=== PATIENT | male | born 1970 | race Caucasian/White ===

== ENCOUNTER 2016-11-22 15:26 | Emergency (ER) | payer OTHER ==
--- NOTE | 2016-11-22 16:58 | ED ---
General Adult HPI - General Chief complaint: Abdominal Pain Stated complaint: Abd Pain Time Seen by Provider: 11/22/16 16:39 Source: patient, RN notes reviewed Mode of arrival: ambulatory Limitations: no limitations - History of Present Illness Initial comments: Patient is a 46-year-old male presents to the emergency room for evaluation of bilateral anterior rib pain. Patient states that he had vomiting and diarrhea all day yesterday. Patient states he laid in bed all day yesterday. Patient states he woke up this morning and is no longer nauseous. Patient states that he has developed a dry cough. Patient's cough has bilateral anterior rib pain. Patient denies any recent falls or trauma to his ribs. Patient denies any pain with breathing. Patient denies chest pain. Patient denies shortness of breath. Patient just states he has pain every time he coughs. Patient states he is here just to have a chest x-ray to make sure he does not have pneumonia. Patient does state he smokes one pack per day. Patient denies any fevers or chills. Patient denies abdominal pain or current nausea. Patient denies headache or dizziness. - Related Data Home Medications Medication Instructions Recorded Confirmed Dextroamphetamine/Amphetamine 20 mg PO BID 11/22/16 11/22/16 [Adderall] Previous Rx's Medication Instructions Recorded Benzonatate [Tessalon Perles] 100 mg PO TID PRN #12 cap 11/22/16 Ibuprofen [Motrin] 800 mg PO Q6HR PRN #20 tab 11/22/16 Allergies Allergy/AdvReac Type Severity Reaction Status Date / Time No Known Allergies Allergy Verified 11/22/16 16:57 Review of Systems ROS Statement: Those systems with pertinent positive or pertinent negative responses have been documented in the HPI. ROS Other: All systems not noted in ROS Statement are negative. Past Medical History Past Medical History: No Reported History History of Any Multi-Drug Resistant Organisms: None Reported Past Surgical History: No Surgical Hx Reported Past Psychological History: ADD/ADHD Smoking Status: Current every day smoker Past Alcohol Use History: None Reported Past Drug Use History: None Reported General Exam - General Exam Comments Initial Comments: Sitting in exam room in no acute distress. Limitations: no limitations General appearance: alert, in no apparent distress Head exam: Present: atraumatic, normocephalic, normal inspection Eye exam: Present: normal appearance ENT exam: Present: normal exam Neck exam: Present: normal inspection Respiratory exam: Present: normal lung sounds bilaterally. Absent: respiratory distress Cardiovascular Exam: Present: regular rate, normal rhythm, normal heart sounds GI/Abdominal exam: Present: soft, normal bowel sounds. Absent: distended, tenderness, guarding, rebound, rigid Extremities exam: Present: normal inspection Back exam: Present: normal inspection Neurological exam: Present: alert, oriented X3, CN II-XII intact, normal gait Psychiatric exam: Present: normal affect, normal mood Skin exam: Present: warm, dry, intact, normal color. Absent: rash Course Vital Signs 11/22/16 11/22/16 11/22/16 16:15 17:12 18:20 Temperature 97.8 F 98.0 F Pulse Rate 84 84 80 Respiratory 20 15 18 Rate Blood Pressure 143/85 146/81 132/75 O2 Sat by Pulse 98 94 L 98 Oximetry Medical Decision Making - Medical Decision Making Patient is a 46-year-old male presents to the emergency room for evaluation of bilateral anterior rib pain. Chest x-ray shows no acute findings. Patient declined any further workup. Patient can take Tylenol or ibuprofen for pain. Patient states he understands everything that was discussed with him. Return parameters discussed. Case discussed with Dr. [place]. - Radiology Data Radiology results: report reviewed, image reviewed Disposition Clinical Impression: Rib pain, Cough Disposition: HOME SELF-CARE Condition: Good Instructions: Costochondritis (ED) Additional Instructions: Take medications as needed. Please follow up with primary care provider in 1-2 days. If any new symptom arises or symptoms worsen, return to ER as soon as possible. Prescriptions: Ibuprofen [Motrin] 800 mg PO Q6HR PRN #20 tab PRN Reason: Pain Benzonatate [Tessalon Perles] 100 mg PO TID PRN #12 cap PRN Reason: Cough Referrals: Bennett Ugarte MD [Primary Care Provider] - 1-2 days Time of Disposition: 18:02
--- NOTE | 2016-11-22 17:28 | XR ---
EXAMINATION TYPE: XR chest 2V DATE OF EXAM: 11/22/2016 5:18 PM COMPARISON: NONE HISTORY: Nausea and vomiting TECHNIQUE: Frontal and lateral views of the chest are obtained. FINDINGS: Heart and mediastinum are normal. Lungs are clear. Diaphragm is normal. Bony thorax is int act. IMPRESSION: Normal chest
[2016-11-22 18:20] VITALS: BP 132/75; PULSE 80; RESP 18; TEMP 98
== END 2016-11-22 18:20 | disposition home or self-care (01) ==
LOC: EC 15:26
DX: R07.81 Pleurodynia (principal); R05 Cough; F17.200 Nicotine dependence, unspecified, uncomplicated
CPT/HCPCS: 71020; 99284

== ENCOUNTER 2023-05-17 11:45 | Day surgery (SDC) | payer OTHER ==
[2023-05-16 11:13] VITALS: BMI 38.7
--- NOTE | 2023-05-17 09:00 | P.GSHP ---
History of Present Illness H&P Date: 05/17/23 Chief Complaint: Left renal colic The patient is a 53-year-old white male with no prior history of urolithiasis or UTIs. He experienced gross hematuria 1 month ago. Beginning May 08, he experienced left flank pain associated with fever, chills, nausea, and vomiting. Upon presenting to the ER, he was found to be febrile and have leukocytosis. CT scan showed evidence of left hydronephrosis secondary to two 7 mm left mid- distal ureteral calculi. Urinalysis was suggestive of a UTI, so he underwent placement of a left ureteral stent. Ultimately, the urine culture came back negative. He felt better once the stent was placed. He now comes for removal of the stent and ureteroscopic removal of the calculi. - Constitutional Constitutional: Reports chills, Reports fever - Gastrointestinal Gastrointestinal: Reports nausea, Reports vomiting - Genitourinary (Male) Genitourinary: Reports flank pain, Reports hematuria, Reports kidney stones, Denies dysuria Past Medical History Past Medical History: Diabetes Mellitus, Hyperlipidemia, Hypertension Additional Past Medical History / Comment(s): Current kidney stones. History of Any Multi-Drug Resistant Organisms: None Reported Past Surgical History: No Surgical Hx Reported Additional Past Surgical History / Comment(s): Ureteral stent. Past Anesthesia/Blood Transfusion Reactions: No Reported Reaction Past Psychological History: ADD/ADHD Smoking Status: Current every day smoker Past Alcohol Use History: Occasional Additional Past Alcohol Use History / Comment(s): Smokes 1/2-1 ppd, has been smoking for 40 yrs. Past Drug Use History: None Reported - Past Family History Mother Family Medical History: Cancer Additional Family Medical History / Comment(s): Ovarian cancer. Medications and Allergies Home Medications Medication Instructions Recorded Confirmed Type Dextroamphetamine/Amphetamine 20 mg PO BID 11/22/16 05/16/23 History [Adderall] Tamsulosin HCl [Flomax] 0.4 mg PO DAILY 05/14/23 05/16/23 History buPROPion HCL [buPROPion HCL XL] 300 mg PO QAM 05/14/23 05/16/23 History cefUROXime axetiL [Ceftin] 500 mg PO BID 05/14/23 05/16/23 History lisinopriL 40 mg PO QAM 05/14/23 05/16/23 History Atorvastatin (Unknown Dose) 1 tab PO DAILY 05/16/23 05/16/23 History Ibuprofen [Motrin] 800 mg PO TID PRN 05/16/23 05/16/23 History metFORMIN HCL [Glucophage] 500 mg PO BID 05/16/23 05/16/23 History Allergies Allergy/AdvReac Type Severity Reaction Status Date / Time No Known Allergies Allergy Verified 05/16/23 10:57 Surgical - Exam - General well developed, well nourished, no distress - Neck no masses, trachea midline - Respiratory normal respiratory effort - Abdomen Abdomen: soft, non tender, no guarding, no rigid, no rebound - Genitourinary normal penis with no external lesions, testicles non-tender - Neurologic no disoriented, no combative Results - Imaging CT scan - abdomen: report reviewed, image reviewed Assessment and Plan (1) Calculus of ureter Status: Acute Code(s): N20.1 - CALCULUS OF URETER SNOMED Code(s): 46446275 Plan: Cystoscopy, left ureteral stent removal, left ureteroscopy with Holmium laser lithotripsy and possible stone basketing. Risks have been reviewed with the patient, which include anesthesia, bleeding, infection, ureteral injury, and inability to remove the calculi.
[~2023-05-17 11:45] MED LIST: ceFAZolin 3 GM in SODIUM CHLORIDE 0.9% 100 ML IVPB PRN
--- NOTE | 2023-05-17 12:02 | XR ---
EXAMINATION TYPE: XR KUB DATE OF EXAM: 05/17/2023 COMPARISON: NONE HISTORY: Left kidney stone TECHNIQUE: Supine KUB image of the abdomen was obtained with 2 radiographs. FINDINGS/IMPRESSION: Small bowel demonstrates no evidence for dilatation or air fluid levels. Gas and fecal material is seen in non-distended colon. No convincing evidence for pneumoperitoneum. Left ureteral stent identified. There is a 1.1 cm calculus in the region of the left ureterovesical j unction. Additional suggested 1.4 cm calculus mid left ureter at the L4-L5 level. No definitive renal calculi. The osseous structures are intact. Degenerative changes of the lumbar spine.
[2023-05-17] MEDS ORDERED: ONDANSETRON 4 MG/2 ML VIAL ONE (12:20)
[2023-05-17] MEDS ORDERED: LIDOCAINE 1% (10MG/ML) FOR IV START INTRADERMA ONE (12:29)
[2023-05-17] MEDS ORDERED: LACTATED RINGERS 1,000 ML IV ONE ×2 (12:30→15:36)
[2023-05-17 12:37] LABS: Glucose,Whole Blood 202 mg/dL (70-110)
[2023-05-17] MEDS ORDERED: ONDANSETRON 4 MG/2 ML VIAL IVP ONE (12:38)
[2023-05-17] MEDS ORDERED: KETOROLAC 15 MG/ML 1 ML VIAL ONE (13:35)
[2023-05-17] MEDS ORDERED: ROCURONIUM 10 MG/ML (5 ML VIAL) IV ONE (13:35)
[2023-05-17] MEDS ORDERED: PROPOFOL 10 MG/ML 20 ML VIAL IV ONE (13:35)
[2023-05-17] MEDS ORDERED: PHENYLEPHRINE-0.9% NACL SYG 1,000 MCG/10 ML SYRINGE ONE (13:35)
[2023-05-17] MEDS ORDERED: MIDAZOLAM 2 MG/2 ML VIAL ONE (13:35)
[2023-05-17] MEDS ORDERED: GLYCOPYRROLATE 0.2 MG/ML 2 ML VIAL ONE (13:35)
[2023-05-17] MEDS ORDERED: HYDROmorphone (PF) 1 MG/ML ONE (13:35)
[2023-05-17] MEDS ORDERED: LIDOCAINE 2% INJ 20 MG/ML (2 ML VIAL) ONE (13:35)
[2023-05-17] MEDS ORDERED: SUCCINYLCHOLINE CHLORIDE 200 MG/10 ML VIAL IV ONE (13:35)
[2023-05-17] MEDS ORDERED: fentaNYL (PF) 50 MCG/ML 2 ML AMP ONE (13:35)
[2023-05-17] MEDS ORDERED: NEOSTIGMINE 1 MG/ML 10 ML VIAL ONE (13:35)
--- NOTE | 2023-05-17 16:12 | FL ---
Intraoperative/procedural fluoroscopic services were provided for left renal calculus. Total fluorosc opy time is 13.1 seconds with a total of 1 submitted image to PACS. Total DAP 2.7646 Gycm2. Please s ee the operative note for further details.
[2023-05-17 16:13] VITALS: TEMP 96.9
--- NOTE | 2023-05-17 16:18 | P.OP ---
Date of Procedure: 05/17/23 Preoperative Diagnosis: Left ureteral calculi Postoperative Diagnosis: Same Procedure(s) Performed: Cystoscopy, left ureteral stent removal, left ureteroscopy with Holmium laser lithotripsy and stone basketing Anesthesia: SILVIO Surgeon: Kermit Mcclure Estimated Blood Loss (ml): 10 IV fluids (ml): 600 Pathology: other (Left ureteral calculus fragments, sent for chemical analysis) Condition: stable Disposition: PACU Indications for Procedure: The patient is a 53-year-old white male with no prior history of urolithiasis or UTIs. He experienced gross hematuria 1 month ago. Beginning May 08, he experienced left flank pain associated with fever, chills, nausea, and vomiting. Upon presenting to the ER, he was found to be febrile and have leukocytosis. CT scan showed evidence of left hydronephrosis secondary to two 7 mm left mid- distal ureteral calculi. Urinalysis was suggestive of a UTI, so he underwent placement of a left ureteral stent. Ultimately, the urine culture came back negative. He felt better once the stent was placed. He now comes for removal of the stent and ureteroscopic removal of the calculi. Operative Findings: Large left ureteral calculi, one in the distal ureter and one in the mid ureter, both fragmented and removed. Description of Procedure: The patient was taken to the operating room and placed in the dorsolithotomy position, with legs supported in Rafael stirrups. The external genitalia was prepped and draped sterilely. The 30 lens was used to introduce the 21-Setswana Espinal cystoscopic sheath through the urethra and into the bladder under direct vi kellie. The prostatic urethra showed evidence of mild lateral lobe enlargement. The bladder was examined in its entirety. No tumors or foreign bodies were seen. Grasping forceps were used to grasp the distal end of the left ureteral stent, which was withdrawn along with the cystoscope. The Espinal semirigid ureteroscope was advanced into the bladder, and the left ureteral orifice was cannulated. the ureteroscope was slowly advanced up to the distal ureteral calculus. The 272 holmium laser probe was passed through the ureteroscope, and lithotripsy was performed. The calculus was very dense. The core of the calculus was treated via dusting. Ultimately, the shell of the calculus was fragmented, and a 0 tip nitinol basket was used to remove all of the calculus fragments from the ureter. Once the calculus was sufficiently treated, the ureteroscope was advanced higher, up to the mid ureteral calculus. Once again, lithotripsy was performed by dusting the core of the calculus, then fragmenting the shell of the calculus until there were no large residual fragments. Fluoroscopy was performed, and no calculi were seen. It was difficult enough to advance the ureteroscope to this level that it was not feasible to go in and out of the ureter to remove fragments via stone basketing. Therefore, a 0.038 inch Glidewire was passed through the ureteroscope, which was then removed. An 11/13-Setswana ureteral access catheter was passed over the wire, almost up to the mid ureteral calculus. The [employer] flexible ureteroscope was then passed through the ureteral access catheter sheath, up to the calculus fragments. The largest of the fragments was grasped using a nitinol basket, and this fragment was only 1 mm in size. Repeat ureteroscopy showed that the debris within the ureter was essentially dust, and pullout ureteroscopy showed no calculus fragments too large to pass. It is also noteworthy that there was no evidence of ureteral trauma. After removing the ureteroscope, the cystoscope was replaced into the bladder. The bladder was emptied, and stone fragments removed from the bladder were saved and sent for chemical analysis. The patient tolerated the procedure well and was taken to the recovery room in stable condition. [facility] [place] Report: Procedure Acuity: Semi-Urgent Stone Size and Location: Left distal ureter and left mid ureter, 11-14 mm Ureteral Dilation: No Ureteral Access Sheath Used: Yes Stone Sent for Analysis: Yes All Stones/Fragments Were Removed with a Basket: No Complications: No Preoperative Antibiotics Given: Yes Stent Placed: No Discharge Medications: None
[2023-05-17 16:30] LABS: Glucose,Whole Blood 185 mg/dL (70-110)
[2023-05-17 16:57] VITALS: RESP 16
[2023-05-17 17:35] VITALS: BP 121/61; PULSE 74
== END 2023-05-17 18:26 | disposition home or self-care (01) ==
LOC: OR 11:45
PROVIDERS: ATTEND Urology
DX: N20.1 Calculus of ureter (principal); E78.5 Hyperlipidemia, unspecified; E11.9 Type 2 diabetes mellitus without complications; I10 Essential (primary) hypertension; F17.210 Nicotine dependence, cigarettes, uncomplicated; Z80.41 Family history of malignant neoplasm of ovary; Z79.84 Long term (current) use of oral hypoglycemic drugs
CPT/HCPCS: 52356; 82365; 74018; C1769; J2250; J0330; J2710; J0690; J2405; J3010; J1170; J1885; J2704; J2001; J2371

== ENCOUNTER 2023-05-31 06:41 | Day surgery (SDC) | payer OTHER ==
[~2023-05-31 06:41] MED LIST changes: +LACTATED RINGERS 1,000 ML IV SCH; +LIDOCAINE 1% (10MG/ML) FOR IV START INTRADERMA PRN; -ceFAZolin 3 GM in SODIUM CHLORIDE 0.9% 100 ML IVPB PRN
[2023-05-31 07:10] VITALS: RESP 16; TEMP 96.9
[2023-05-31 07:23] LABS: Glucose,Whole Blood 181 mg/dL (70-110)
[2023-05-31] MEDS ORDERED: PROPOFOL 10 MG/ML 20 ML VIAL IV ONE (07:37)
--- NOTE | 2023-05-31 07:42 | P.GSHP ---
History of Present Illness H&P Date: 05/31/23 Chief Complaint: Reading colonoscopy Is a 53-year-old male presents today for screening colonoscopy. Patient denies a significant GI complaints. Past Medical History Past Medical History: No Reported History, Diabetes Mellitus, Hyperlipidemia, Hypertension Additional Past Medical History / Comment(s): 05/17/23 UA STENT. kidney stones History of Any Multi-Drug Resistant Organisms: None Reported Past Surgical History: No Surgical Hx Reported Additional Past Surgical History / Comment(s): ureteral stent Past Anesthesia/Blood Transfusion Reactions: No Reported Reaction Past Psychological History: ADD/ADHD Smoking Status: Current every day smoker Past Alcohol Use History: None Reported Additional Past Alcohol Use History / Comment(s): 1/2-1 pk/day/40 yrs Past Drug Use History: None Reported - Past Family History Mother Family Medical History: Cancer Additional Family Medical History / Comment(s): Ovarian cancer. Medications and Allergies Home Medications Medication Instructions Recorded Confirmed Type Dextroamphetamine/Amphetamine 20 mg PO BID 11/22/16 05/29/23 History [Adderall] buPROPion HCL [buPROPion HCL XL] 300 mg PO QAM 05/14/23 05/29/23 History lisinopriL 40 mg PO QAM 05/14/23 05/29/23 History Atorvastatin (Unknown Dose) 1 tab PO DAILY 05/16/23 05/29/23 History Ibuprofen [Motrin] 800 mg PO TID PRN 05/16/23 05/29/23 History metFORMIN HCL [Glucophage] 500 mg PO BID 05/16/23 05/29/23 History Tirzepatide [Mounjaro] 1 injection SQ SA 05/29/23 05/29/23 History Allergies Allergy/AdvReac Type Severity Reaction Status Date / Time No Known Allergies Allergy Verified 05/31/23 07:03 Surgical - Exam Vital Signs Temp Pulse Resp BP Pulse Ox 96.9 F L 92 16 120/60 95 05/31/23 07:07 05/31/23 07:07 05/31/23 07:07 05/31/23 07:07 05/31/23 07:07 - General well developed, well nourished, no distress - Eyes PERRL - ENT normal pinna - Neck no masses - Respiratory normal expansion - Cardiovascular Rhythm: regular - Abdomen Abdomen: soft, non tender Results - Labs Abnormal Lab Results - Last 24 Hours (Table) 05/31/23 Range/Units 07:21 POC Glucose (mg/dL) 181 H (70-110) mg/dL Assessment and Plan Assessment: We'll perform screening colonoscopy.
--- NOTE | 2023-05-31 07:57 | P.OP ---
Date of Procedure: 05/31/23 Preoperative Diagnosis: Screening colonoscopy Postoperative Diagnosis: Colon polyps Procedure(s) Performed: Colonoscopy Anesthesia: MAC Surgeon: Janak Castle Pathology: other (Old polyp) Condition: stable Disposition: PACU Description of Procedure: The patient's placed on the endoscopy table in the lateral position. He received IV sedation. Digital rectal exam was performed. This revealed no abnormalities. Flexible colonoscope was then placed patient anus and passed throughout the entire colon. The ileocecal valve was visualized. The cecum, appeared normal. In the right colon there is a sessile polyp seen was removed the cold forcep. Scope was then drawn the remaining right colon appeared normal. The trachea in the transverse colon another polyp seen was removed with the snare. The remainder the transverse colon descending colon and sigmoid colon appeared normal. Scope was brought back the rectum was normal. Scope withdrawn for patient.
[2023-05-31 08:18] VITALS: BP 115/69; PULSE 85
== END 2023-05-31 08:33 | disposition home or self-care (01) ==
LOC: ORWHC2ENDO 06:41
PROVIDERS: ATTEND Surgery
DX: Z12.11 Encounter for screening for malignant neoplasm of colon (principal); D12.3 Benign neoplasm of transverse colon; D12.2 Benign neoplasm of ascending colon; F17.200 Nicotine dependence, unspecified, uncomplicated; Z87.442 Personal history of urinary calculi; Z98.890 Other specified postprocedural states; Z79.84 Long term (current) use of oral hypoglycemic drugs; Z79.899 Other long term (current) drug therapy
CPT/HCPCS: 88305; 45380; 45385; J2704

== ENCOUNTER → 2024-02-20 | Outpatient (CLI) | payer OTHER ==
--- NOTE | 2024-02-20 20:43 | MR ---
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 TECHNIQUE: Multi planar, multi sequence imaging was performed through the brain including: T1, T2, In version recovery, Diffusion weighted imaging, and gradient echo imaging. No gadolinium was given. FINDINGS: The curiel-white junctions, ventricular system, and cisterns appear unremarkable. Scattered foci of hi gh T2 signal intensity are seen within the periventricular white matter. Midline structures show no a bnormality. Diffusion-weighted imaging shows no evidence of restricted diffusion. The susceptibility weighted images do not reveal any evidence for micro-hemorrhage. Hypointense signal is identified on T2 and FLAIR sequences within the globus pallidus bilaterally. The bone marrow signal is within normal limits. Paranasal sinuses and mastoid air cells: No significant paranasal sinus disease. Visualized orbits: Orbital contents are intact. IMPRESSION: 1. No evidence of acute process. 2. T2 hypointense appearance of the globus pallidus bilaterally, although nonspecific has been associ ated with underlying Parkinson's syndromes. 3. Nonspecific white matter changes, likely secondary to small vessel ischemic disease.
== END | disposition home or self-care (01) ==
LOC: RADMRIMAIN 20:00
PROVIDERS: ATTEND Psychiatry & Neurology Neurology
DX: G20.A1 Parkinson's disease without dyskinesia, without mention of fluctuations (principal); F45.8 Other somatoform disorders; I67.82 Cerebral ischemia
CPT/HCPCS: 70551

== ENCOUNTER → 2024-03-14 | Outpatient (CLI) | payer OTHER ==
--- NOTE | 2024-03-14 14:56 | NM ---
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 After the administration of 4.95 mCi I-123 Ioflupane DaTscan. Images obtained 3 hours p ost injection. SPECT images of the brain were acquired with axial and coronal reconstructions. FINDINGS: There is asymmetric slight blunting of the right corpus striata and mild increased background activit y. IMPRESSION: Slight blunting on the right. Mild increased background activity. Findings can be seen with Parkinson 's disease or parkinsonian syndrome.
== END | disposition home or self-care (01) ==
LOC: RADNMMAIN 06:44
PROVIDERS: ATTEND Psychiatry & Neurology Neurology
DX: G20.A1 Parkinson's disease without dyskinesia, without mention of fluctuations (principal)
CPT/HCPCS: 78803; A9584